=== PATIENT | female | born 1970 | race Caucasian/White ===

== ENCOUNTER → 2017-06-12 | Outpatient (CLI) | payer OTHER ==
--- NOTE | 2017-06-12 17:00 | RAD ---
Right hand, three views Indication: Joint pain, thumb injury last . Comparison: None Findings: The joint spaces are grossly maintained. No acute cortical disruption or malalignment ident ified. No significant soft tissue abnormality appreciated. Impression: No evidence for acute skeletal injury of the right hand. Reported By:
== END ==
LOC: RAD 16:25
PROVIDERS: ATTEND Nurse Practitioner Family
DX: M25.541 Pain in joints of right hand (principal)
CPT/HCPCS: 73130